=== PATIENT | male | born 1950 | race Caucasian/White ===

== ENCOUNTER → 2025-03-22 12:31 | Outpatient (CLI) | payer SELFPAY | PROVIDERS: PCP Physician Assistant Medical; Visit Provider Family Medicine | DX: M54.50 Low back pain, unspecified (principal); R63.4 Abnormal weight loss | CPT/HCPCS: 81015; 87086 ==

== ENCOUNTER → 2025-03-23 14:01 | Outpatient (CLI) | payer SELFPAY ==
[2025-03-23 19:19] LABS: Hematocrit 25.1 % (41-53); Hemoglobin 8.8 g/dL (13.5-17.5); Mean Corpuscular HGB Conc 35.3 % (30-36); Mean Corpuscular Hemoglobin 34.8 PG (26-34); Mean Corpuscular Volume 98.6 fL (80-100); Platelet Count 126 X10^3/uL (150-400)
[2025-03-23 19:30] LABS: Hemoglobin A1C% w Est Avg Glu 5.6 % (4.0-6.0)
[2025-03-23 19:31] LABS: Alanine Aminotransferase 84 IU/L (<50); Albumin 3.8 g/dL (3.5-5.0); Albumin Globulin Ratio 0.5 (1.0-2.8); Alkaline Phosphatase 117 U/L (38-126); Blood Urea Nitrogen 24 mg/dL (9-20); Calcium 9.5 mg/dL (8.4-10.2); Carbon Dioxide 21 mmol/L (22-32); Chloride 107 mmol/L (98-107); Estimated Glomerular Filt Rate 32 mL/min (>60); Globulin 7.1 g/dL (1.7-4.1); Glucose 94 mg/dL (70-99); HEMOLYSIS < 15 (0-50); Potassium 4.1 mmol/L (3.4-5.1); Sodium 144 mmol/L (137-145); Total Protein 10.9 g/dL (6.3-8.2)
[2025-03-23 19:51] LABS: TSH w/ Reflex to FT4 1.79 uIU/mL (0.47-4.68)
[2025-03-23 19:55] LABS: Band Neutrophils Percent 3.0 % (3-7); Eosinophils Percent Manual 2.0 % (2-4); Lymphocytes Percent Manual 26.0 % (25-45); Monocytes Percent Manual 12.0 % (2-11); Neutrophils Absolute Manual 2760 /uL (3000-5900); Segmented Neutrophils Percent 57.0 % (38-70); Total Cells Counted 100
[2025-03-23 20:00] LABS: Rouleaux 2+
== END ==
PROVIDERS: PCP Family Medicine; Visit Provider Family Medicine
DX: M79.89 Other specified soft tissue disorders (principal); R03.0 Elevated blood-pressure reading, without diagnosis of hypertension; R63.4 Abnormal weight loss; M54.50 Low back pain, unspecified; R53.83 Other fatigue; Z12.5 Encounter for screening for malignant neoplasm of prostate
CPT/HCPCS: 80053; 83036; 84443; 85025; 85651; 86140; G0103

== ENCOUNTER → 2025-03-24 14:27 | Outpatient (CLI) | payer MEDICARE, SELFPAY ==
[2025-03-24 19:37] LABS: HEMOLYSIS < 15 (0-50); Iron 88 ug/dL (49-181)
[2025-03-24 19:59] LABS: Percent Iron Saturation 37 % (20-50); Total Iron Binding Capacity 236 ug/dL (261-462); Transferrin 160 mg/dL (206-381)
[2025-03-24 20:00] LABS: Reticulocyte Count, Percent 1.7 % (0.9-2.6)
[2025-03-24 20:15] LABS: Ferritin 848 ng/mL (18-464)
[2025-03-24 20:32] LABS: Hematocrit 21.0 % (41-53); Hemoglobin 7.2 g/dL (13.5-17.5); Mean Corpuscular HGB Conc 34.2 % (30-36); Mean Corpuscular Hemoglobin 33.8 PG (26-34); Mean Corpuscular Volume 98.9 fL (80-100); Platelet Count 115 X10^3/uL (150-400)
[2025-03-24 20:46] LABS: Band Neutrophils Percent 1.0 % (3-7); Basophils Percent Manual 1.0 % (0-1); Eosinophils Percent Manual 1.0 % (2-4); Lymphocytes Percent Manual 38.0 % (25-45); Monocytes Percent Manual 10.0 % (2-11); Neutrophils Absolute Manual 2350 /uL (3000-5900); Segmented Neutrophils Percent 49.0 % (38-70); Total Cells Counted 100
[2025-03-24 22:07] LABS: Rouleaux 1+
== END ==
PROVIDERS: PCP Family Medicine; Visit Provider Family Medicine
DX: N18.32 Chronic kidney disease, stage 3b (principal); R77.8 Other specified abnormalities of plasma proteins; D64.9 Anemia, unspecified; M54.50 Low back pain, unspecified; D69.6 Thrombocytopenia, unspecified
CPT/HCPCS: 82607; 82728; 82746; 82784; 83540; 83550; 83883; 84155; 84165; 85025; 85045; 86334

== ENCOUNTER → 2025-04-13 12:51 | Outpatient (CLI) | payer OTHER, SELFPAY ==
--- NOTE | 2025-04-13 12:54 | DI.US.S_ITS ---
PROCEDURE: US ABDOMEN COMPLETE INDICATIONS: RECENT MULTIPLE MYELOMA DX; WEIGHT LOSS TECHNIQUE: Real-time scanning was performed of the abdominal and retroperitoneal organs, with image documentation. COMPARISON: None. FINDINGS: Liver: The liver demonstrates enlarged size. The liver demonstrates generalized mildly increased echogenicity. This decreases ultrasound sensitivity for detection of hepatic masses. Gallbladder: Multiple layering gallstones are seen. The gallbladder wall is not thickened, measuring 3 mm or less. No specific pericholecystic fluid is seen. The sonographic Mcnulty sign is negative. Biliary ducts: Intrahepatic bile ducts are non-dilated. Extrahepatic bile duct caliber measures 4-5 mm. Normal is 6-7 mm or less in diameter, or 10 mm or less post-cholecystectomy. Pancreas: Visualized portions of the pancreas are sonographically normal. Spleen: Spleen is normal in size and homogeneous in echotexture. Kidneys: Kidneys are normal in size and echotexture. Right kidney measures 12.5 cm long; left kidney measures 11.5 cm long. No hydronephrosis or nephrolithiasis. No solid masses. Aorta: Visualized aorta is normal in caliber at less than 3 cm. Iliacs: Proximal common iliac arteries are normal in caliber at less than 2.5 cm. IVC: Intrahepatic inferior vena cava is patent. Miscellaneous: No free abdominal fluid. IMPRESSION: Enlarged liver, with fatty infiltration. Gallstones are seen, yet without additional sonographic signs of cholecystitis. Negative for biliary dilatation. Please correlate with physical examination findings, patient presentation, and laboratory values. Dictated by: Rhys Carr M.D. on 04/13/2025 at 14:01 Approved by: Rhys Carr M.D. on 04/13/2025 at 14:02
--- NOTE | 2025-04-13 12:54 | DI.MRI.S_ITS ---
PROCEDURE: MR LUMBAR SPINE WO/W CON INDICATIONS: sudden onset severe pain,2mo . sympt suspicious -infxn,malig TECHNIQUE: Noncontrast sagittal T1 spin echo and T2 fast spin echo, sagittal STIR, axial T1 and T2 fast spin echo through the lumbar spine. In cases with scoliosis, additional coronal T2 fast spin echo may be performed. After the administration of contrast, sagittal and axial T1 spin echo with fat saturation through the lumbar spine. COMPARISON: [facility] ([facility]), CR, XR LUMBAR SPINE 2- 3V, 03/03/2025, 14:34. FINDINGS: Image quality: Diagnostic Alignment and curvature: There is minimal anterolisthesis at the L4-L5 level. Minimal retrolisthesis can be seen at L5-S1. Marrow: Marrow is of normal overall signal. There is a remote T12 central compression deformity, with 10-20% loss of height centrally. A remote Schmorl's node can be seen superiorly. No acute vertebral body compression fractures. There is an L3 fracture seen, with 60-70% loss of height centrally. Posterior displacement fracture fragments can be seen measuring 4-5 mm. No abnormal STIR signal can be seen to suggest a recent fracture at this site. No abnormal enhancement can be seen within this vertebral body level. No suspicious marrow enhancement. Spinal cord: Conus medullaris terminates at the L1 level. Visualized spinal cord demonstrates normal signal, without suspicious enhancement. Paraspinous soft tissues: No paravertebral masses or abnormal enhancement. T12-L1: Normal appearance. L1-L2: Normal appearance. L2-L3: The disc height and disk signal are well-preserved. Mild to moderate disc bulge is seen, which is eccentric to the right. Mild facet joint hypertrophy is seen. Mild to moderate bilateral neural foraminal narrowing can be seen. Moderate central canal narrowing is seen at this level. L3-L4: Urjr-[id number] loss of disc height and disc signal can be seen. Mild to moderate disc bulge is seen. There is a superimposed central disc protrusion. There is at least moderate left-sided and moderate right-sided neural foraminal narrowing. Mild central canal narrowing is seen. L4-L5: Hoxm-pz-xifocfna loss of disc height and disc signal can be seen. Moderate generalized disc bulge is seen. There is a mild central disc extrusion, with superior migration of the disc material. Moderate facet joint hypertrophy is seen. Moderate bilateral neural foraminal narrowing is seen. Moderate central canal narrowing is seen. L5-S1: Moderate loss of disc height is seen. Loss of disc signal is seen. Moderate generalized disc bulge is seen. There is a central disc protrusion present. Moderate facet joint hypertrophy is seen. Moderate bilateral neural foraminal narrowing is seen. Mild central canal narrowing is seen. IMPRESSION: No acute abnormality is seen. No abnormal enhancement is seen. Remote fractures can be seen at T12 and L3. Multiple levels of significant degenerative change can be seen. Dictated by: Rhys Carr M.D. on 04/13/2025 at 14:03 Approved by: Rhys Carr M.D. on 04/13/2025 at 14:08
== END ==
LOC: MRI 12:52
PROVIDERS: PCP Family Medicine; Referring Provider Family Medicine; Visit Provider Family Medicine
DX: M47.816 Spondylosis without myelopathy or radiculopathy, lumbar region (principal); M47.817 Spondylosis without myelopathy or radiculopathy, lumbosacral region; M54.50 Low back pain, unspecified; K80.20 Calculus of gallbladder without cholecystitis without obstruction; R16.0 Hepatomegaly, not elsewhere classified; M79.89 Other specified soft tissue disorders; R63.4 Abnormal weight loss; R03.0 Elevated blood-pressure reading, without diagnosis of hypertension; M48.54XS Collapsed vertebra, not elsewhere classified, thoracic region, sequela of fracture; M48.56XS Collapsed vertebra, not elsewhere classified, lumbar region, sequela of fracture
CPT/HCPCS: 72158; 76700; A9579